=== PATIENT | female | born 1950 | race Caucasian/White ===

== ENCOUNTER 2022-11-03 11:12 | Emergency (ER) | payer OTHER, BC ==
[~2022-11-03] VITALS: Ht 154.9 cm; Wt 74.8 kg
[2022-11-03 11:14] VITALS: BP_SYST 153
--- NOTE | 2022-11-03 11:14 | NUR ---
BROUGHT BACK TO BED #7 AND TRIAGED. REPORT GIVEN TO DAI
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
--- NOTE | 2022-11-03 12:05 | NUR ---
DR TAYLOR IN ROOM FOR EXAM
[2022-11-03] MEDS ORDERED: LIDOCAINE PATCH 5% 1 EA TP ONE (12:15)
[2022-11-03] MEDS ORDERED: ONDANSETRON 4 MG ODT TAB PO ONE (12:15)
[2022-11-03] MEDS ORDERED: MORPHINE 4 MG INJ. 4 MG/ML VIAL IM ONE (12:15)
[2022-11-03] MEDS ORDERED: methocarbamoL 500 MG TABLET PO ONE (12:15)
--- NOTE | 2022-11-03 13:16 | NUR ---
PT BACK FROM XRAY, MEDICATED ORDERED
[2022-11-03] MEDS ORDERED: NAPR-688 PO (13:50)
[2022-11-03] MEDS ORDERED: ACET1TAB93 PO (13:50)
[2022-11-03 14:12] VITALS: BP_SYST 129
--- NOTE | 2022-11-03 14:12 | NUR ---
Patient given written and verbal discharge instructions and verbalizes understanding. ER MD discussed with patient the results and treatment provided. Patient in stable condition. ID arm band removed. Rx of TYLENOL #3 AND NAPROXEN given. Patient educated on pain management and to follow up with PMD. Pain Scale 0/10 . Opportunity for questions provided and answered. Medication side effect fact sheet provided.
== END 2022-11-03 14:12 | disposition home or self-care (01) ==
LOC: SED 11:12
DX: S16.1XXA Strain of muscle, fascia and tendon at neck level, initial encounter (principal); S29.012A Strain of muscle and tendon of back wall of thorax, initial encounter; M41.9 Scoliosis, unspecified; M51.36 Other intervertebral disc degeneration, lumbar region; I10 Essential (primary) hypertension; K21.9 Gastro-esophageal reflux disease without esophagitis; Z88.8 Allergy status to other drugs, medicaments and biological substances; Z79.899 Other long term (current) drug therapy; V49.40XA Driver injured in collision with unspecified motor vehicles in traffic accident, initial encounter; Y93.89 Activity, other specified; Y92.89 Other specified places as the place of occurrence of the external cause; Y99.8 Other external cause status
CPT/HCPCS: 99284; 72080; 96372; Q0162; J2270

== ENCOUNTER 2022-11-25 13:01 | Emergency (ER) | payer BC ==
[~2022-11-25] VITALS: Ht 162.6 cm; Wt 77.1 kg
[~2022-11-25 13:01] MED LIST: NAPR-688 PO
[2022-11-25 13:12] VITALS: BP_SYST 163
[2022-11-25] MEDS ORDERED: HYDROcodone/ACETAMIN 7.5-325 MG TAB PO ONE (13:30)
[2022-11-25] MEDS ORDERED: KETOROLAC TROMETHAMINE 30 MG VIAL IM ONE (13:30)
[2022-11-25] MEDS ORDERED: TRAM50TA2 PO (16:01)
[2022-11-25] MEDS ORDERED: IBUP-1969 PO (16:01)
[2022-11-25 16:18] VITALS: BP_SYST 163
== END 2022-11-25 16:19 | disposition home or self-care (01) ==
LOC: SED 13:01
DX: S33.5XXA Sprain of ligaments of lumbar spine, initial encounter (principal); S23.3XXA Sprain of ligaments of thoracic spine, initial encounter; K21.9 Gastro-esophageal reflux disease without esophagitis; Z88.7 Allergy status to serum and vaccine; Z79.899 Other long term (current) drug therapy; V89.2XXA Person injured in unspecified motor-vehicle accident, traffic, initial encounter; Y93.89 Activity, other specified; Y92.89 Other specified places as the place of occurrence of the external cause; Y99.8 Other external cause status
CPT/HCPCS: 99285; 72125; 72128; 72131; 96372; 76376; J1885

== ENCOUNTER 2023-01-07 13:53 | Emergency (ER) | payer BC ==
[~2023-01-07] VITALS: Ht 154.9 cm; Wt 72.6 kg
[~2023-01-07 13:53] MED LIST changes: +IBUP-1969 PO; +TRAM50TA2 PO
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
--- NOTE | 2023-01-07 14:25 | NUR ---
Dr Vogel evaluating patient at bedside
[2023-01-07 14:41] VITALS: BP_SYST 133
--- NOTE | 2023-01-07 15:07 | NUR ---
Labs sent to the lab
[2023-01-07 15:31] LABS: BASOPHILS % (AUTO) 0.7 % (0.0-2.0); EOSINOPHILS # (AUTO) 0.1 K/uL (0.0-0.4); EOSINOPHILS % (AUTO) 1.7 % (0.0-4.0); HEMATOCRIT 37.6 % (36-48); HEMOGLOBIN 12.6 g/dL (12.0-16.0); LYMPHOCYTES # (AUTO) 2.3 K/uL (1.0-5.5); LYMPHOCYTES % (AUTO) 35.8 % (20.5-51.5); MEAN CORPUSCULAR HEMOGLOBIN 32 pg (27-31); MEAN CORPUSCULAR HGB CONC 34 % (32-36); MEAN CORPUSCULAR VOLUME 94 fL (79.0-98.0); MONOCYTES # (AUTO) 0.5 K/uL (0.0-1.0); MONOCYTES % (AUTO) 8.5 % (1.7-9.3); NEUTROPHILS # (AUTO) 3.4 K/uL (1.8-7.7); NEUTROPHILS % (AUTO) 53.3 % (40.0-70.0); PLATELET COUNT (AUTO) 172 K/uL (130-430); RED BLOOD CELL COUNT(AUTO) 3.99 MIL/uL (4.2-6.2); RED CELL DISTRIBUTION WIDTH 13.4 % (9.0-15.0); WHITE BLOOD COUNT (AUTO) 6.3 K/uL (4.8-10.8)
[2023-01-07 15:37] LABS: ANION GAP 7 (5-15); CALCIUM 8.9 mg/dL (8.4-11.0); CHLORIDE 104 mmol/L (98-107); CREATININE 0.87 mg/dL (0.55-1.30); GLUCOSE 114 mg/dL (70-99); UREA NITROGEN, BLOOD 17 mg/dL (8-21)
[2023-01-07 15:41] LABS: INR 0.9 (0.8-1.2); PROTHROMBIN TIME 9.4 SECS (9.5-12.5)
[2023-01-07 15:42] LABS: ALANINE AMINOTRANSFERASE 14 U/L (12-78); ALBUMIN 3.7 g/dL (3.4-4.8); ASPARTATE AMINOTRANSFERASE 15 U/L (10-37); TOTAL BILIRUBIN 0.3 mg/dL (0.0-1.0)
[2023-01-07 16:35] VITALS: BP_SYST 133
--- NOTE | 2023-01-07 16:36 | NUR ---
Patient given written and verbal discharge instructions and verbalizes understanding. ER MD discussed with patient the results and treatment provided. Patient in stable condition. ID arm band removed. No given. Patient educated on pain management and to follow up with PMD. Pain Scale 0/10 . Opportunity for questions provided and answered. Medication side effect fact sheet provided.
== END 2023-01-07 16:36 | disposition home or self-care (01) ==
LOC: SED 13:53
DX: R60.9 Edema, unspecified (principal); K21.9 Gastro-esophageal reflux disease without esophagitis; Z88.7 Allergy status to serum and vaccine; Z79.899 Other long term (current) drug therapy
CPT/HCPCS: 36415; 80053; 85025; 85379; 85610-TC; 85730-TC; 93971; 99284